=== PATIENT | female | born 1990 | race Caucasian/White ===

== ENCOUNTER 2017-06-26 19:33 | Outpatient (CLI) | payer SELFPAY ==
[2017-06-26] MEDS ORDERED: NORMOSOL-R PH 7.4 1,000 ML IV ONE ×2 (20:15→22:51)
[2017-06-26] MEDS ORDERED: LACTATED RINGERS 500 ML IV ONE (21:36)
[2017-06-26] MEDS ORDERED: BRETHINE ONE (21:47)
[2017-06-26] MEDS ORDERED: BRETHINE SUB-Q SCH (22:00)
[2017-06-26 23:19] LABS: Bacteria,Urine 4+ /HPF (Negative); Bilirubin,Urine NEG (Negative); Blood,Urine NEG (Negative); Color,Urine Yellow (Yellow); Mucus,Urine FEW /HPF; Protein,Urine <15 mg/dL mg/dL (Negative); Urobilinogen,Urine < 2.0 mg/dL (<2.0)
[2017-06-26 23:26] LABS: Amphetamine Screen,Urine PRESUMPTIVE NEGATIVE; Benzodiazepines Screen,Urine PRESUMPTIVE NEGATIVE; Cannabinoid Screen,Urine PRESUMPTIVE NEGATIVE; Cocaine Screen,Urine PRESUMPTIVE NEGATIVE; Methadone Screen,Urine PRESUMPTIVE NEGATIVE; Opiate Screen,Urine PRESUMPTIVE NEGATIVE
[2017-06-26 23:53] VITALS: BP 122/64
== END 2017-06-27 00:18 | disposition home or self-care (01) ==
LOC: TRG 19:33
PROVIDERS: ATTEND Obstetrics & Gynecology
DX: O62.9 Abnormality of forces of labor, unspecified (principal); Z3A.30 30 weeks gestation of pregnancy
CPT/HCPCS: 59025; 80307; 81001; 96360; 96361; 96372; J3105; J7120

== ENCOUNTER 2017-08-11 13:08 | Outpatient (CLI) | payer OTHER ==
[2017-08-11 13:44] VITALS: BP 121/68
== END 2017-08-11 14:45 | disposition home or self-care (01) ==
LOC: TRG 13:08
PROVIDERS: ATTEND Obstetrics & Gynecology
DX: O47.03 False labor before 37 completed weeks of gestation, third trimester (principal); Z3A.36 36 weeks gestation of pregnancy
CPT/HCPCS: 59025

== ENCOUNTER 2017-08-19 20:11 | Outpatient (CLI) | payer SELFPAY ==
[2017-08-19 20:31] VITALS: BP 124/76
[2017-08-19 21:45] LABS: Bilirubin,Urine NEG (Negative); Blood,Urine NEG (Negative); Color,Urine Straw (Yellow); Mucus,Urine FEW /HPF; Protein,Urine <15 mg/dL mg/dL (Negative); Urobilinogen,Urine < 2.0 mg/dL (<2.0); WBC,Urine < 1.0 /HPF (0.0-6.0)
[2017-08-19] MEDS: VISTARIL PO ONE (21:56)
== END 2017-08-19 22:04 | disposition home or self-care (01) ==
LOC: TRG 20:11
PROVIDERS: ATTEND Obstetrics & Gynecology
DX: O47.1 False labor at or after 37 completed weeks of gestation (principal); Z3A.37 37 weeks gestation of pregnancy
CPT/HCPCS: 59025; 81001

== ENCOUNTER 2017-09-05 17:38 | Inpatient (IN) | payer OTHER ==
[2017-09-05 19:23] LABS: Bacteria,Urine 2+ /HPF (Negative); Bilirubin,Urine NEG (Negative); Blood,Urine NEG (Negative); Color,Urine Yellow (Yellow); Hyaline Casts,Urine 1 /LPF; Mucus,Urine FEW /HPF; Protein,Urine <15 mg/dL mg/dL (Negative)
[2017-09-05] MEDS ORDERED: ePHEDrine SULFATE IV PRN (19:47)
[2017-09-05] MEDS ORDERED: BRETHINE IVP PRN (19:47)
[2017-09-05] MEDS ORDERED: MINERAL OIL PO PRN (19:47)
[2017-09-05] MEDS ORDERED: POLYCILLIN/NS 2 GM/100 ML 2 GM/100 ML BAG IV ONE (19:47)
[2017-09-05] MEDS ORDERED: SUBLIMAZE IV PRN (19:47)
[2017-09-05] MEDS ORDERED: BRETHINE SUB-Q PRN (19:47)
[2017-09-05] MEDS ORDERED: NARCAN 0.4 MG/1 ML IV PRN (19:47)
[2017-09-05] MEDS ORDERED: STADOL IV PRN (19:47)
[2017-09-05] MEDS ORDERED: XYLOCAINE 2% INFILTRATI ONE (19:47)
[2017-09-05] MEDS ORDERED: PHENERGAN PO PRN (19:47)
[2017-09-05] MEDS ORDERED: ZOFRAN IV PRN (19:47)
--- NOTE | 2017-09-05 19:51 | History and Physical Report ---
History of Present Illness Date of examination: 09/05/17 Chief complaint: Labor History of present illness: Pt is a 27yo HF EDC 09/04/17; EGA 40 1/7 weeks presents to L&D complaining of RUC's q 3-4 mins. [facility], but records are not available and GBS is unknown. Past History Past Medical History: no pertinent history Past Surgical History: no surgical history Family/Genetic History: none Social history: no significant social history, single - Obstetrical History Expected Date of Delivery: 09/04/17 Actual Gestation: 40 Week(s) 2 Day(s) : 6 Medications and Allergies Allergies Allergy/AdvReac Type Severity Reaction Status Date / Time No Known Allergies Allergy Verified 08/11/17 13:15 Home Medications Medication Instructions Recorded Confirmed Last Taken Type Vit-Fe Fumar-FA [ 1 tab PO QDAY 09/05/17 09/05/17 09/04/17 09: 00 History Vitamin] 1 Review of Systems All systems: negative - Vital Signs Vital signs: Vital Signs Pulse Pulse Ox 89 98 09/05/17 17:59 09/05/17 17:59 Temp Pulse Resp BP Pulse Ox 98.6 F 88 20 117/82 98 09/05/17 18:40 09/05/17 18:40 09/05/17 18:40 09/05/17 18:00 09/05/17 18:40 - Physical Exam Breasts: Positive: deferred Cardiovascular: Regular rate Lungs: Positive: Clear to auscultation Abdomen: Positive: normal appearance Genitourinary (Female): Positive: normal external genitalia Uterus: Positive: enlarged Extremities: Positive: normal - Obstetrical FHR: category 1 Uterine Contraction Monitor Mode: External Cervical Dilatation: 4 (per nurse) Cervical Effacement Percentage: 50 (per nurse) station: -3 Uterine Contraction Pattern: Regular Uterine Tone Measurement Phase: Contraction Uterine Contraction Intensity: Moderate Results All other labs normal. Assessment and Plan - Patient Problems (1) 40 weeks gestation of Onset Date: 09/06/17 Current Visit: Yes Status: Acute Plan to address problem: A: IUP @ 40 2/7 weeks in labor Unknown GBS P: Admit to L&D for expectant vaginal delivery IV Ampicillin Obtain records
[2017-09-05] MEDS ORDERED: LACTATED RINGERS 1,000 ML IV SCH (20:00)
[2017-09-05] MEDS ORDERED: PITOCin/NS 20 UNIT/1000ML DRIP 20 UNITS/1,000 ML BAG IV SCH (20:00)
[2017-09-05] MEDS ORDERED: PITOCin/NS 30 UNIT/500ML 30 UNITS/500 ML BAG IV SCH ×2 (20:00)
[2017-09-05] MEDS ORDERED: AMPICILLIN/NS 1 GM/50 ML 1 GM/50 ML BAG IV SCH (23:49)
--- NOTE | 2017-09-06 01:59 | Procedure Note ---
OB Delivery Note - Delivery Date of Delivery: 09/06/17 Surgeon: DANA YEPEZ Estimated blood loss: other (150cc) - Vaginal Delivery presentation: vertex Delivery position: OA Intrapartum events: none Delivery induction: none Delivery augmentation: rupture of membranes, pitocin Delivery monitor: external FHT, external uterine Route of delivery: Delivery placenta: spontaneous Delivery cord: 3 umbilical vessels Episiotomy: none Delivery laceration: none Anesthesia: intravenous Delivery comments: delivered OA and placed on Mom's chest for [id number] bonding and delayed cord clamping, cut by Dad - Infant A at 1 minute: 8 at 5 minutes: 9 Gender: Female ([id number])
[2017-09-06] MEDS ORDERED: PHENERGAN PO PRN (02:00)
[2017-09-06] MEDS ORDERED: PHENERGAN PR PRN (02:00)
[2017-09-06] MEDS ORDERED: DULCOLAX PR PRN (02:00)
[2017-09-06] MEDS ORDERED: LANSINOH TP PRN (02:00)
[2017-09-06] MEDS ORDERED: BENADRYL PO PRN (02:00)
[2017-09-06] MEDS ORDERED: ZOFRAN IV PRN (02:00)
[2017-09-06] MEDS ORDERED: TYLENOL PO PRN (02:00)
[2017-09-06] MEDS ORDERED: PITOCin/NS 20 UNIT/1000ML DRIP 20 UNITS/1,000 ML BAG IV SCH (02:00)
[2017-09-06] MEDS ORDERED: SODIUM CHLORIDE FLUSH SYRINGE 10 ML IV NR (02:00)
[2017-09-06] MEDS ORDERED: MILK OF MAGNESIA PO PRN (02:00)
[2017-09-06] MEDS ORDERED: TUCKS PAD TP PRN (02:00)
[2017-09-06] MEDS ORDERED: NORCO 5/325 PO PRN (02:00)
[2017-09-06 02:28] LABS: Basophils % (Auto) 0.3 % (0.0-1.8); Eosinophils # (Auto) 0.1 K/mm3 (0.0-0.4); Eosinophils % (Auto) 0.5 % (0.0-4.3); Hematocrit 32.3 % (30.3-42.9); Hemoglobin 10.9 gm/dl (10.1-14.3); Lymphocytes # (Auto) 3.7 K/mm3 (1.2-5.4); Lymphocytes % (Auto) 28.3 % (13.4-35.0); Mean Corpuscular HGB Conc 34 % (30-34); Mean Corpuscular Hemoglobin 27 pg (28-32); Mean Corpuscular Volume 80 fl (79-97); Monocytes # (Auto) 0.6 K/mm3 (0.0-0.8); Monocytes % (Auto) 4.3 % (0.0-7.3); Platelet Count 376 K/mm3 (140-440); Red Blood Count 4.05 M/mm3 (3.65-5.03); Red Cell Distribution Width 15.5 % (13.2-15.2)
[2017-09-06] MEDS: MOTRIN PO SCH ×4 (04:29→17:25)
[2017-09-06] MEDS: COLACE PO SCH ×2 (11:07→22:00)
[2017-09-06] MEDS: FEOSOL PO SCH ×2 (11:07→22:00)
[2017-09-06] MEDS: PRENATAL VITAMIN PO SCH (11:09)
[2017-09-06 14:10] LABS: Hematocrit 27.3 % (30.3-42.9); Hemoglobin 9.3 gm/dl (10.1-14.3)
[2017-09-07] MEDS: MOTRIN PO SCH ×5 (00:03→23:58)
[2017-09-07] MEDS ORDERED: BOOSTRIX IM ONE (06:00)
[2017-09-07] MEDS ORDERED: M-M-R II VACCINE SUB-Q ONE (06:00)
[2017-09-07] MEDS: COLACE PO SCH ×2 (09:30→21:18)
[2017-09-07] MEDS: FEOSOL PO SCH ×2 (09:30→21:30)
[2017-09-07] MEDS: PRENATAL VITAMIN PO SCH (09:30)
--- NOTE | 2017-09-07 10:15 | Progress Note ---
Assessment and Plan A: PPD#1 s/p Stable Desires disharge home today P: Routine PP care Discharge home today pending Peds Subjective - Subjective Date of service: 09/07/17 Principal diagnosis: s/p Interval history: See H&P and delivery note Patient reports: appetite normal, voiding normally, pain well controlled, flatus , ambulating normally, no bowel movement [place]: doing well, nursing well Objective - Vital Signs Latest vital signs: Vital Signs Temp Pulse Resp BP Pulse Ox 09/07/17 08:16 98.3 F 71 18 118/59 98 09/07/17 05:09 18 09/07/17 00:25 97.8 F 89 20 130/77 96 09/07/17 00:03 18 09/06/17 15:40 98.2 F 65 18 107/45 96 09/06/17 12:25 98.3 F 75 18 120/57 96 Intake and Output 09/06/17 09/07/17 09/07/17 23:59 07:59 15:59 Intake Total 240 360 Balance 240 360 Intake: Oral 240 360 Other: Total, Intake Amount 240 120 # Voids Void 1 1 - Exam Breasts: Present: normal, Cardiovascular: Present: Regular rate, Normal S1, Normal S2 Lungs: Present: Clear to auscultation, Normal air movement Abdomen: Present: normal appearance, soft, normal bowel sounds. Absent: distention Vulva: both: normal Uterus: Present: firm, fundal height at umbilicus Extremities: Present: normal Deep Tendon Reflex Grade: Normal +2 - Labs Labs: Abnormal lab results 09/06/17 Range/Units 13:47 Hgb 9.3 L (10.1-14.3) gm/dl Hct 27.3 L (30.3-42.9) %
--- NOTE | 2017-09-07 10:17 | Discharge Summary ---
Providers - Providers Date of Admission: 09/05/17 20:00 Date of discharge: 09/07/17 Attending physician: MARY GIORDANO MD Primary care physician: MARY GIORDANO MD Hospitalization Reason for admission: active labor, IUP at term Delivery: Procedure details: See delivery note Episiotomy: midline Laceration: none Other procedures: none complications: none Discharge diagnosis: IUP at term delivered baby: female Condition at discharge: Good Disposition: DC-01 TO HOME OR SELFCARE Plan - Provider Discharge Summary Activity: routine, no sex for 6 weeks, no heavy lifting 4 weeks, no strenuous exercise Diet: routine Instructions: routine Additional instructions: [] Smoking cessation referral if applicable(refer to patient education folder for contact #) [] Refer to [facility] Booklet Call your doctor immediately for: * Fever > 100.5 * Heavy vaginal bleeding ( >1 pad per hour) * Severe persistent headache * Shortness of breath * Reddened, hot, painful area to leg or breast * Drainage or odor from incision. * Keep incision clean and dry at all times and follow doctor's instructions regarding bathing/showering - Follow up plan Follow up: MARY GIORDANO MD [Primary Care Provider] - 6 Weeks
[2017-09-08] MEDS: MOTRIN PO SCH ×2 (05:35→12:33)
[2017-09-08 09:01] VITALS: BP 115/63
[2017-09-08] MEDS: PRENATAL VITAMIN PO SCH (10:09)
[2017-09-08] MEDS: COLACE PO SCH (10:09)
[2017-09-08] MEDS: FEOSOL PO SCH (10:09)
== END 2017-09-08 12:50 | disposition home or self-care (01) | DRG 775 ==
LOC: TRG 17:38 → LD 20:00 → OB 09-06 03:21
PROVIDERS: ADMIT Obstetrics & Gynecology; ATTEND Obstetrics & Gynecology
PROC: 10E0XZZ Delivery of Products of Conception, External Approach (ICD-10-PCS; principal; 2017-09-06)
PROC: 3E0234Z Introduction of Serum, Toxoid and Vaccine into Muscle, Percutaneous Approach (ICD-10-PCS; 2017-09-07)
DX: O80 Encounter for full-term uncomplicated delivery (principal); Z3A.40 40 weeks gestation of pregnancy; Z37.0 Single live birth; Z23 Encounter for immunization
CPT/HCPCS: 36415; 59025; 81001; 85014; 85018; 85025; 86592; 86706; 86762; 86850; 86900; 86901; 87806; 90471; 90715; 99211; G0463; J0290; J0595; J2590; J3010; J7120